=== PATIENT | male | born 1970 | race Caucasian/White ===

== ENCOUNTER 2023-05-23 19:52 | Emergency (ER) | payer SELFPAY ==
[~2023-05-23] VITALS: Ht 160 cm; Wt 62.0 kg
[2023-05-23 20:07] VITALS: BP 132/79; PULSE 72; RESP 18; TEMP 97.6; O2SAT 97
[2023-05-23] MEDS ORDERED: KETOROLAC 30MG/ML VIAL IM ONE (21:15)
[2023-05-24] MEDS ORDERED: NAPR-1176 MT (02:12)
== END 2023-05-24 03:27 | disposition home or self-care (01) ==
LOC: ER 19:52
DX: G44.009 Cluster headache syndrome, unspecified, not intractable (principal)
CPT/HCPCS: 99285; 96372; 70450; J1885